=== PATIENT | male | born 2000 | race Hispanic/Latino ===

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

== ENCOUNTER 2024-03-15 22:21 | Emergency (ER) | payer BC, OTHER ==
[~2024-03-15] VITALS: Ht 170.2 cm; Wt 77.1 kg
--- NOTE | 2024-03-15 22:40 | ERN ---
ED Note History of Present Illness Stated Complaint: C/O PAIN WITH SWELLING TO LEFT ANKLE Chief Complaint: Ankle Problem Time Seen by MD: 22:27 Time Seen by Midlevel: 22:27 Dictation: The patient is a 23-year-old male with no past medical history who presents to the emergency department with complaints of left ankle pain and swelling after twisting it while playing basketball prior to arrival. No other injuries reported. Allergies: Coded Allergies: No Known Allergies (Unverified Allergy, Unknown, 03/15/24) Home Meds Active Scripts Ibuprofen (Ibuprofen) 600 Mg Tablet, 600 MG PO Q6H PRN for PAIN, #10 TAB Prov:ALIZA SANTANA SOLAR LAB TECHNICIAN 03/15/24 Past Medical History Past Medical History: No Pertinent History Surgical History: None RN Note Reviewed/Agreed w/PFSH: Yes Review of System Dictation Constitutional: Negative for fever,chills, and weight loss Eyes: Negative for injury, pain,redness, and discharge ENT: Negative for injury,pain or swelling Cardiovascular: Negative for chest pain, palpitations, and edema Respiratory: Negative for shortness of breath, cough, and wheezing, Abdomen/GI: Negative for abdominal pain, nausea, vomiting, diarrhea, and constipation Back: Negative for injury and pain : Negative for injury, bleeding and discharge MS/Extremity: Positive for left ankle pain, swelling Skin: Negative for rash, and discoloration Neuro: Negative for headache, weakness, numbness, tingling, and seizure Psych: Negative for suicide ideation, homicidal ideation, and hallucinations Initial Vital Sign VS Vital Signs Date Time Temp Pulse Resp B/P (MAP) Pulse Ox O2 Delivery O2 Flow Rate FiO2 03/15/24 22:26 97.9 70 20 147/64 97 Room Air 03/15/24 22:34 0 21 Physical Exam Dictation Vital Signs reviewed General Appearance: Alert, oriented x 3, no acute distress, well developed, nourished. Head and Face: non-traumatic. Eyes: PERRL, pink conjunctivas, eyelid no trauma, anterior chamber with arcus senilis. Ears: Pinnas intact and no signs of trauma or erythema ear canals clear and no discharge TM no erythema Nose: No discharge, no bleeding. Oropharynx: Mouth normal, tongue pink. pharynx clear,no erythema, tonsils no exudates, no abscesses noted, mucous membrane moist Neck: Supple, non-tender, no thyromegaly, no masses, no JVD, no bruits Breast:Deferred Chest:No tenderness, no crepitus, no paradoxical movement, no retractions Lungs:Clear, well-ventilated, symmetric, no rales, no wheezing, no rhonchi, no stridor, good breath sounds bilaterally Heart: Regular rate, regular rhythm, no murmur, no gallops Vascular: no peripheral edema, dorsalis pedis 3+ Abdomen: Soft, positive bowel sounds, nondistended, no guarding, nontender, no rebound, no masses no hepatomegaly, no splenomegaly, no Matias's sign, no hernias. Rectal: Deferred Genital: Deferred Neurological: Normal speech, motor function intact, sensory function intact Musculoskeletal: Neck nontender, full range of motion, back nontender, full range of motion, Extremities: nontender, full range of motion , left ankle swelling, cap refill less than 2 seconds Skin: Color pink, dry, no turgor, no rash, no lacerations, no abrasions, no contusions. Lymphatic: Deferred Results (Laboratory/Radiology) Laboratory/Radiology REASON: injury ORDERING PHYSICIAN: ALIZA SANTANA SOLAR LAB TECHNICIAN PROCEDURE: FT 3VW LT - FOOT COMP 3+VWS LT FOOT COMP 3+VWS LT HISTORY: Injury COMPARISON: None TECHNIQUE: 3 images of left foot were obtained. FINDINGS: There is no acute displaced fracture or dislocation. IMPRESSION: 1. Findings as described above. REASON: INJURY ORDERING PHYSICIAN: CELESTINO CARUSO DO PROCEDURE: [id number] - ANKLE COMP 3VWS LT ANKLE COMP 3VWS LT HISTORY: Injury COMPARISON: None TECHNIQUE: 3 images of left ankle were obtained. FINDINGS: There is no acute displaced fracture or dislocation. IMPRESSION: 1. Findings as described above. Labs Reviewed?: Yes ED Course ED Course Orders Procedure Category Date Status Time Ankle Comp 3vws Lt RAD 03/15/24 Resulted 22:24 Foot Comp 3+Vws Lt RAD 03/15/24 Resulted 22:37 Ketorolac 60mg/2ml PHA 03/15/24 Complete (Toradol 60mg/2ml) 23:00 Apply Jesus Wrap (Er) CPOE 03/15/24 Transmitted 23:27 Crutches W/Training CPOE 03/15/24 Transmitted (Er) 23:27 Current Medications Medications (Trade) Dose Ordered Sig/Valentina Route PRN Reason Start Time Stop Time Status Last Admin Dose Admin Ketorolac Tromethamine (toRADol 60MG/ 2ML) 60 mg ONCE ONCE IM 03/15/24 23:00 03/15/24 23:01 DC 03/15/24 22:42 Vital Signs Date Time Temp Pulse Resp B/P (MAP) Pulse Ox O2 Delivery O2 Flow Rate FiO2 03/15/24 23:50 98.4 82 18 120/66 98 Room Air* 0 21 03/15/24 22:34 98.4 77 18 125/65 99 Room Air* 0 21 03/15/24 22:26 97.9 70 20 147/64 97 Room Air Medical Decision Making MDM The patient is a 23-year-old male with no past medical history who presents to the emergency department with complaints of left ankle pain and swelling after twisting it while playing basketball prior to arrival. No other injuries reported. X-ray showed no acute fracture. Patient will be discharged to follow up with ortho. Patient in no acute distress. Differential diagnosis: Ankle sprain, ankle fracture, fractured foot Need for hospitalization: Patient does not meet criteria for hospitalization. There are no social concerns with this patient. DX & DISP Disposition: Discharge Departure Impression: Primary Impression: Left ankle sprain Condition: Stable Scripts Ibuprofen (Ibuprofen) 600 Mg Tablet 600 MG PO Q6H PRN for PAIN, #10 TAB Prov: ALIZA SANTANA SOLAR LAB TECHNICIAN 03/15/24 Additional Instructions: Please follow up with Orthopedic. In primary doctor. Please return to ER if symptoms worsen FOLLOW-UP WITH PRIMARY CARE PROVIDER IN 1 TO 2 DAYS. TAKE MEDICATIONS DIRECTED HERE IN THE EMERGENCY ROOM. OKAY TO CONTINUE HOME MEDICATIONS UNLESS OTHERWISE DISCUSSED DURING YOUR VISIT IN THE EMERGENCY ROOM TODAY. RETURN TO YOUR NEAREST EMERGENCY ROOM IF SYMPTOMS WORSEN OR IF THERE IS NO IMPROVEMENT. CALL 911 IF YOU NEED IMMEDIATE ASSISTANCE. TAKE TYLENOL OR MOTRIN [id number] NEEDED AND IF NO CONTRAINDICATIONS ARE PRESENT. INCREASE ORAL HYDRATION. A WOUND CULTURE OR URINE CULTURE WAS ORDERED HERE IN THE EMERGENCY ROOM DEPARTMENT PLEASE FOLLOW-UP WITH PRIMARY CARE PROVIDER AND ADVISE THEM TO GET REPEAT PORTS FROM OUR FACILITY. IF YOU HAD ANY JESUS WRAP/SPLINTS THAT WERE APPLIED HERE, PLEASE DO NOT REMOVE THEM UNTIL YOU SEE YOUR PRIMARY CARE OR SPECIALTY. Referrals: SELF,REFERRAL (PCP) PATRICIA SINGH MD Time of Disposition: 23:26 I have reviewed the case, and I agree with, Diagnosis and Plan I performed a substantive portion of the visit. I have reviewed and personally made and approve the management plan that is documented in the notes by myself with MAGNOLIA/resident. I acknowledged full responsibility for the patient's management plan. ALIZA SANTANA Mar 15, 2024 22:40 CELESTINO CARUSO DO Mar 16, 2024 03:42
[2024-03-15] MEDS: ketOROlac 60 MG VIAL (30MG/ML) IM ONE (22:42)
--- NOTE | 2024-03-15 23:22 | HMCIMG ---
FOOT COMP 3+VWS LT HISTORY: Injury COMPARISON: None TECHNIQUE: 3 images of left foot were obtained. FINDINGS: There is no acute displaced fracture or dislocation. IMPRESSION: 1. Findings as described above.
--- NOTE | 2024-03-15 23:23 | HMCIMG ---
ANKLE COMP 3VWS LT HISTORY: Injury COMPARISON: None TECHNIQUE: 3 images of left ankle were obtained. FINDINGS: There is no acute displaced fracture or dislocation. IMPRESSION: 1. Findings as described above.
[2024-03-15] MEDS ORDERED: IBUP-2070 PO (23:27)
[2024-03-15 23:50] VITALS: BP 120/66; PULSE 82; RESP 18; TEMP 98.4; O2SAT 98
== END 2024-03-15 23:55 | disposition home or self-care (01) ==
LOC: EDH 22:21
DX: S93.402A Sprain of unspecified ligament of left ankle, initial encounter (principal); X50.1XXA Overexertion from prolonged static or awkward postures, initial encounter; Y93.89 Activity, other specified; Y92.89 Other specified places as the place of occurrence of the external cause; Y99.8 Other external cause status
CPT/HCPCS: 99284; 73610; 73630; 96372; J1885